=== PATIENT | female | born 1965 | race Caucasian/White ===

== ENCOUNTER 2017-06-11 00:12 | Inpatient (IN) | payer OTHER, MEDICAID ==
[~2017-06-11] VITALS: Ht 162.6 cm; Wt 88.5 kg
[~2017-06-11 00:12] MED LIST: VITAMIN
[2017-06-11 00:54] LABS: AMPHET/METH SCREEN,URINE NEGATIVE (NEGATIVE); BARBITURATE SCREEN, URINE NEGATIVE (NEGATIVE); BENZODIAZEPINES SCREEN,URINE NEGATIVE (NEGATIVE); CANNABINOID SCREEN,URINE NEGATIVE (NEGATIVE); COCAINE SCREEN,URINE NEGATIVE (NEGATIVE); METHADONE SCREEN, URINE NEGATIVE (NEGATIVE); OPIATE SCREEN,URINE NEGATIVE (NEGATIVE)
[2017-06-11 00:57] LABS: PHENCYCLIDINE SCREEN,URINE NEGATIVE (NEGATIVE)
[2017-06-11 01:06] LABS: BASOPHILS # (AUTO) 0.02 K/uL (0.00-0.20); BASOPHILS % (AUTO) 0.3 % (0.0-2.0); EOSINOPHILS # (AUTO) 0.21 K/uL (0.00-0.70); EOSINOPHILS % (AUTO) 2.36 % (1.0-6.0); HEMATOCRIT 44.1 % (36-46); HEMOGLOBIN 14.7 g/dL (12.0-16.0); LYMPHOCYTES # (AUTO) 1.6 K/uL (1.0-4.8); LYMPHOCYTES % (AUTO) 18.3 % (22.0-44.0); MEAN CORPUSCULAR HEMOGLOBIN 30.6 pg (26.0-34.0); MEAN CORPUSCULAR HGB CONC 33.3 G/dL (31.0-37.0); MEAN CORPUSCULAR VOLUME 92 fL (80-100); MONOCYTES # (AUTO) 0.4 K/uL (0.1-1.0); MONOCYTES % (AUTO) 4.2 % (2.0-9.0); NEUTROPHILS # (AUTO) 6.7 K/uL (1.8-7.7); NEUTROPHILS % (AUTO) 74.8 % (40.0-70.0); PLATELET COUNT (AUTO) 352 K/uL (150-450); RED BLOOD CELL COUNT(AUTO) 4.79 MIL/uL (4.00-5.20); RED CELL DISTRIBUTION WIDTH 14.6 % (11.5-14.5)
[2017-06-11 01:12] LABS: ANION GAP 10 mmol/L (8-16); CALCIUM, TOTAL 8.6 mg/dL (8.8-10.5); CARBON DIOXIDE 26 mmol/L (22-29); CHLORIDE 104 mmol/L (98-107); CREATININE 0.87 mg/dL (0.60-1.30); GLOMERULAR FILTR. RATE CALC > 60 mL/min (>60); GLUCOSE,RANDOM 139 mg/dL (70-110); SODIUM SERUM 140 mmol/L (136-145); UREA NITROGEN, BLOOD 10 mg/dL (7-18)
[2017-06-11 01:18] LABS: ALANINE AMINOTRANSFERASE 23 U/L (12-78); ALBUMIN 3.8 g/dL (3.4-5.0); ALKALINE PHOSPHATASE 84 U/L (46-116); ASPARTATE AMINOTRANSFERASE 16 U/L (15-37); BILIRUBIN,TOTAL 0.2 mg/dL (0.1-1.0); TOTAL PROTEIN, SERUM 7.7 g/dL (6.4-8.2)
[2017-06-11] MEDS ORDERED: HALOPERIDOL 5 MG TABLET PO PRN (02:00)
[2017-06-11] MEDS ORDERED: ZOLPIDEM TARTRATE 10 MG TABLET PO PRN (02:00)
[2017-06-11] MEDS ORDERED: LORazepam 2 MG TABLET PO PRN (02:00)
[2017-06-11 02:23] LABS: CHOL/HDL RATIO 3.4 (3.9-5.7); CHOLESTEROL 212 mg/dL (131-200); HDL CHOLESTEROL 63 mg/dL (40-60); LDL CHOL (CALC.) 113 mg/dL (0-130); THYROID STIMULATING HORMONE 2.94 uIU/mL (0.36-3.74); TRIGLYCERIDES 181 mg/dL (15-150)
[2017-06-11] MEDS ORDERED: SODIUM CHLORIDE 0.9% 1,000 ML IV ONE (04:00)
[2017-06-11] MEDS ORDERED: LABETALOL HCL 5 MG/ML 20 ML VIAL IVP ONE (04:00)
[2017-06-11 09:00] VITALS: BP 178/170
[2017-06-11] MEDS ORDERED: METOPROLOL TARTRATE 25 MG TABLET PO SCH (09:00)
[2017-06-11 09:12] VITALS: BP 168/105
[2017-06-11] MEDS: METOPROLOL TARTRATE 25 MG TABLET PO SCH ×2 (09:14→16:17)
[2017-06-11] MEDS ORDERED: INFLUENZA VIRUS VACCINE QVS 2017-18 (3YR+)/PF 60 MCG/0.5 ML SYRINGE IM ONE (12:00)
[2017-06-11 12:21] VITALS: BP 149/99
[2017-06-11 16:52] VITALS: BP 158/95
[2017-06-11 17:04] VITALS: BP 138/78
[2017-06-12 01:31] VITALS: BP 119/68
[2017-06-12] MEDS: METOPROLOL TARTRATE 25 MG TABLET PO SCH ×2 (08:35→16:26)
[2017-06-12 08:50] VITALS: BP 141/86
[2017-06-12 16:34] VITALS: BP 140/78
[2017-06-13 05:55] VITALS: BP 140/83
[2017-06-13 08:19] VITALS: BP 145/87
[2017-06-13] MEDS: METOPROLOL TARTRATE 25 MG TABLET PO SCH ×2 (09:40→16:14)
[2017-06-13 16:10] VITALS: BP 150/93
[2017-06-14] MEDS ORDERED: -PHARMACY VACCINE NOTE- MISC ONE (02:15)
[2017-06-14 06:53] VITALS: BP 136/90
[2017-06-14] MEDS: METOPROLOL TARTRATE 25 MG TABLET PO SCH ×2 (08:13→16:16)
[2017-06-14 08:34] VITALS: BP 134/83
[2017-06-14] MEDS ORDERED: METO50 PO (12:27)
[2017-06-14 16:01] VITALS: BP 140/90
== END 2017-06-14 16:35 | disposition home or self-care (01) | DRG 885 ==
LOC: EMS 00:12 → B2S 03:30 → B2X 06-13 16:34
PROVIDERS: ADMIT Psychiatry & Neurology Psychiatry; ATTEND Psychiatry & Neurology Psychiatry
DX: F25.9 Schizoaffective disorder, unspecified (principal); I10 Essential (primary) hypertension
CPT/HCPCS: 84443; 90471; 96361; 96374; 99291; G0480; J3490; J7030